=== PATIENT | male | born 1935 | race Caucasian/White ===

== ENCOUNTER 2020-10-22 12:55 | Emergency (ER) | payer SELFPAY ==
[2020-10-22 12:57] VITALS: BP 171/90; PULSE 84; RESP 20; TEMP 35.9; O2SAT 99; BMI 25.8
--- NOTE | 2020-10-22 13:01 | PC.NURSE ---
pt sitting up on side of bed eating
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
[2020-10-22 13:39] VITALS: BP 143/79; PULSE 85; RESP 18; O2SAT 96
[2020-10-22 15:15] VITALS: BP 127/60; PULSE 82; RESP 17; TEMP 36.4; O2SAT 98
== END 2020-10-22 15:18 | disposition home or self-care (01) ==
PROVIDERS: Emergency Provider Emergency Medicine
DX: F44.89 Other dissociative and conversion disorders (principal); F03.90 Unspecified dementia, unspecified severity, without behavioral disturbance, psychotic disturbance, mood disturbance, and anxiety
CPT/HCPCS: 99282